=== PATIENT | male | born 1960 | race Caucasian/White ===

== ENCOUNTER 2018-09-20 19:37 | Inpatient (IN) ==
--- NOTE | 2018-09-20 20:30 | XR ---
EXAM DATE: 09/20/2018 8:16 PM EDT AGE/SEX: 57 years / Male INDICATIONS: Chest pain and shortness of breath. CLINICAL DATA: This is the patient's initial encounter. Patient reports that signs and symptoms have been present for 1 day and indicates a pain score of 7/10. MEDICAL/SURGICAL HISTORY: Chronic obstructive pulmonary disease. Hypertension. . Gastric band. COMPARISON: No prior exams available for comparison. FINDINGS: No significant focal pleural or parenchymal opacities. The cardiomediastinal contours are unremarkabl e. Osseous structures are intact. CONCLUSION: 1. Negative portable chest. Electronically signed by: Elio Carson MD 09/20/2018 8:28 PM EDT
[2018-09-20 21:23] LABS: Baso % (Auto) 0.7 % (0.0-2.0); Eos % (Auto) 1.1 % (0.0-4.0); Hematocrit 33.2 % (39.0-51.0); Hemoglobin 11.2 gm/dL (13.0-17.0); Lymph # (Auto) 0.8 th/mm3 (1.0-4.8); Lymph % (Auto) 27.3 % (9.0-44.0); Mean Corpuscular HGB Conc 33.7 % (32.0-36.0); Mean Corpuscular Hemoglobin 33.7 pg (27.0-34.0); Mean Platelet Volume 9.6 fL (7.0-11.0); Mono # (Auto) 0.2 th/mm3 (0.0-0.9); Mono % (Auto) 7.9 % (0.0-8.0); Neut # (Auto) 1.8 th/mm3 (1.8-7.7); Platelet Count 51 th/mm3 (150-450); Red Blood Count 3.32 mil/mm3 (4.50-5.90); Red Cell Distribution Width 15.8 % (11.6-17.2); White Blood Count 2.8 th/mm3 (4.0-11.0)
[2018-09-20 21:45] LABS: Alanine Aminotransferase 132 U/L (12-78); Albumin 3.3 g/dL (3.4-5.0); Anion Gap 15 meq/L (5-15); Aspartate Aminotransferase 355 U/L (15-37); Blood Urea Nitrogen 12 mg/dL (7-18); Calcium 8.4 mg/dL (8.5-10.1); Chloride 107 meq/L (98-107); Glomerular Filtration Rate 83 mL/min (>89); Glucose,Random 85 mg/dL (74-106); Potassium 3.2 meq/L (3.5-5.1); Sodium 144 meq/L (136-145)
[2018-09-20 21:49] LABS: Alkaline Phosphatase 247 U/L (45-117); Total Protein 7.5 g/dL (6.4-8.2); Troponin I 0.09 ng/mL (0.02-0.05)
--- NOTE | 2018-09-20 22:48 | ED ---
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 09/20/18 22:45 CONCLUSION: 1. No acute intracranial abnormality. 2. Cortical atrophy. 3. Right maxillary sinus disease. . Liver Ultrasound 09/21/18 00:00 CONCLUSION: 1. Pronounced hepatic steatosis. 2. Gallbladder abnormality which may be polyp or tumefactive sludge 3. Increasing splenomegaly and peritoneal and pleural fluid which were not present just yesterday. Lumbar Spine CT 09/21/18 00:00 CONCLUSION: 1. No acute bony abnormalities seen. 2. Moderate stenosis at the L4-L5 level caused by disc bulge and facet and ligamentum flavum hypertrophy. 3. Mild disc bulges at the L3-L4 and L5-S1 levels. Thoracic Spine CT 09/21/18 00:00 CONCLUSION: No acute abnormality. There are scattered minimal marginal osteophyte seen. Discharge Plan Discharge Disposition Patient Disposition: 30 Still Patient Discharge Condition Condition: Stable Discharge Order Discharge Orders: Discharge Order (Routine); Ordered 09/23/18 Ordered By: Escobar Garner Discharge Details Anticipated Discharge Date: 09/23/18 Diagnosis: Elevated troponin, Elevated liver enzymes, Alcohol abuse, Fracture of rib Physicians Team ED Provider: Bhupinder Mayfield ED Midlevel Provider: Ilir Falcon Primary Care Provider: UNKNOWN, Attending Provider: Escobar Garner Other Providers: Rupesh Ortiz Status ED Status: Left Department Discharge Information Discharge Date/Time: 09/21/18 04:01
[2018-09-20 23:27] LABS: Alcohol 229 mg/dL (0-5); Creatine Kinase 176 U/L (39-308)
[2018-09-20 23:31] LABS: Activated Partial Thrombo Time 26.4 sec (24.3-30.1); INR 1.3 Ratio; Prothrombin Time 12.7 sec (9.8-11.6)
[2018-09-20 23:43] LABS: Creatine Kinase MB 1.3 ng/mL (0.5-3.6)
[2018-09-21 00:07] LABS: Bacteria,Urine Rare /hpf; Bilirubin,Urine Small (Negative); Clarity,Urine Hazy (Clear); Color,Urine Amber (Yellw/Straw); Glucose,Urine (UA) Negative (Negative); Hyaline Casts,Urine 64 /lpf (0-3); Leukocyte Esterase,Urine Negative (Negative); Mucus,Urine Few /lpf (Occasional); Nitrite,Urine Negative (Negative); Specific Gravity,Urine 1.024 (1.002-1.035); Squamous Epithelial Cell,Urine 1 /hpf (0-5); Urobilinogen,Urine 4 or Greater mg/dL (Less than 2)
[2018-09-21 00:09] LABS: Ictotest,Urine Positive (Negative)
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
[2018-09-21] MEDS ORDERED: Sod Chloride 0.9% Inj 1,000 ML IV.SIG SCH (00:15)
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
[2018-09-21 00:22] LABS: Amphetamine Screen,Urine Neg (Neg); Barbiturate Screen,Urine Neg (Neg); Cannabinoid Screen,Urine Neg (Neg); Cocaine Screen,Urine Neg (Neg)
[2018-09-21] MEDS ORDERED: Haloperidol Inj 5 MG/ML Ampul IV.PUSH PRN (00:23)
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
[2018-09-21 00:41] LABS: Opiate Screen,Urine Neg (Neg)
[2018-09-21] MEDS ORDERED: Sod Chloride 0.9% Inj 1,000 ML IV.SIG ONE (01:30)
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
[2018-09-21 04:07] LABS: Troponin I 0.1 ng/mL (0.02-0.05)
[2018-09-21] MEDS: Sod Chloride 0.9% Inj 1,000 ML IV.CONT SCH ×4 (05:24→18:39)
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
[2018-09-21] MEDS: Aspirin 325 MG Tablet PO SCH (09:45)
[2018-09-21] MEDS: Lisinopril 10 MG Tablet PO SCH (09:46)
[2018-09-21] MEDS: Pantoprazole Sodium 20 MG DR Tablet PO SCH (09:46)
[2018-09-21] MEDS: Atenolol 50 MG Tablet PO SCH (09:46)
--- NOTE | 2018-09-21 11:14 | P.CONGI ---
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 same as a sharp pressure type pain that is intermittent. He denies any aggravating or alleviating factors. Patient denies difficulty swallowing or heartburn. States bowel movements are regular 3 times daily soft brown without any noted bleeding. Transaminitis Most likely due to chronic alcohol use. Total bilirubin 5.1 AST 355 ALT 132 alk phos 247 albumin 3.3. (09/21) liver ultrasound revealed the following:. 1. Pronounced hepatic steatosis. 2. Gallbladder abnormality which may be polyp or tumefactive sludge 3. Increasing splenomegaly and peritoneal and pleural fluid which were not present just yesterday. (09/20) CT abdomen and pelvis revealed the following. 1. Hepatosplenomegaly. There is hepatic steatosis present. 2. No acute abnormality is seen. 3. Suspected left renal cyst. 4. Lap band. Elevated troponin noted at 0.10. Plan -Diet as tolerated -Monitor labs/liver workup -Trend liver function tests -Continue IV fluid hydration -Avoid hepatotoxins -Alcohol cessation -PPI -Supportive care -Further recommendations to follow based on patient's status and findings This patient has been seen by myself and Dr. Ortiz and this note is written on his behalf - Attending Attestation Dr. Ortiz <Yolande Allan - Last Filed: 09/21/18 10:55> (1) Elevated liver enzymes Status: Acute Code(s): R74.8 - Abnormal levels of other serum enzymes (2) Alcohol abuse Status: Acute Code(s): F10.10 - Alcohol abuse, uncomplicated - Plan Patient seen and examined Agree with above history and physical Continue with current supportive care Monitor labs Patient is seen for elevated liver function tests with no history of alcoholism with findings suggestive of cirrhosis with noted hepatosplenomegaly on the CT the patient also has pancytopenia low albumin mildly elevated PT/INR again all suggestive of cirrhosis at this point in addition to acute alcoholic hepatitis regardless workup is currently in progress and we will await lab tests and monitor but the patient will need to abstain from alcohol and any other potentially hepatotoxic drug <Rupesh Ortiz E - Last Filed: 09/21/18 20:14>
[2018-09-21 11:53] LABS: Albumin 3.1 g/dL (3.4-5.0); Anion Gap 9 meq/L (5-15); Aspartate Aminotransferase 299 U/L (15-37); Blood Urea Nitrogen 9 mg/dL (7-18); Calcium 7.9 mg/dL (8.5-10.1); Carbon Dioxide 25.9 meq/L (21.0-32.0); Chloride 107 meq/L (98-107); Glomerular Filtration Rate Greater Than 89 mL/min (>89); Glucose,Random 75 mg/dL (74-106); Potassium 3.5 meq/L (3.5-5.1); Sodium 142 meq/L (136-145)
[2018-09-21 11:55] LABS: Alanine Aminotransferase 121 U/L (12-78)
[2018-09-21 11:57] LABS: Alkaline Phosphatase 221 U/L (45-117); Total Protein 7.1 g/dL (6.4-8.2); Troponin I 0.09 ng/mL (0.02-0.05)
[2018-09-21 12:29] LABS: % Iron Saturation 48.2 % (20-50)
[2018-09-21 13:09] LABS: Hepatitis A IgM Antibody Nonreactive (Nonreactive); Hepatitits B Surface Antigen Nonreactive (Nonreactive)
[2018-09-21] MEDS: LORazepam 1 MG Tablet PO PRN (18:38)
[2018-09-22] MEDS: Sod Chloride 0.9% Inj 1,000 ML IV.CONT SCH ×5 (01:28→23:41)
[2018-09-22] MEDS: Aspirin 325 MG Tablet PO SCH (08:16)
[2018-09-22] MEDS: Pantoprazole Sodium 20 MG DR Tablet PO SCH (08:17)
[2018-09-22] MEDS: Lisinopril 10 MG Tablet PO SCH (08:19)
[2018-09-22] MEDS: Atenolol 50 MG Tablet PO SCH (08:51)
[2018-09-22 09:40] LABS: Baso % (Auto) 0.3 % (0.0-2.0); Eos % (Auto) 1.3 % (0.0-4.0); Hematocrit 30.8 % (39.0-51.0); Hemoglobin 10.7 gm/dL (13.0-17.0); Lymph # (Auto) 0.6 th/mm3 (1.0-4.8); Lymph % (Auto) 20.5 % (9.0-44.0); Mean Corpuscular HGB Conc 34.8 % (32.0-36.0); Mean Corpuscular Hemoglobin 34.5 pg (27.0-34.0); Mean Corpuscular Volume 99.3 fL (80.0-100.0); Mean Platelet Volume 9.8 fL (7.0-11.0); Mono # (Auto) 0.3 th/mm3 (0.0-0.9); Mono % (Auto) 11.1 % (0.0-8.0); Neut # (Auto) 2.1 th/mm3 (1.8-7.7); Neut % (Auto) 66.8 % (16.0-70.0); Platelet Count 56 th/mm3 (150-450); Red Cell Distribution Width 16.5 % (11.6-17.2); White Blood Count 3.1 th/mm3 (4.0-11.0)
[2018-09-22] MEDS ORDERED: Morphine Sulfate Inj 2 MG/ML Vial IV.PUSH PRN (10:09)
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
[2018-09-22] MEDS: Morphine Inj 4 MG/ML Vial IV.PUSH PRN ×3 (13:19→21:55)
[2018-09-22 14:46] LABS: Smooth Muscle Total Auto Abs Negative (Negative)
--- NOTE | 2018-09-22 16:03 | P.PNGI ---
Subjective Interval history: Patient awake and alert sitting up in bed reports mild nausea relieved by Zofran States tolerating meals well Denies abdominal pain <JerrellYolande - Last Filed: 09/22/18 15:58> Physical Exam Vital signs: Vital Signs 09/21/18 18:00 09/21/18 20:00 09/22/18 00:00 Temperature 99.2 F 99.4 F 98.9 F Pulse Rate 85 84 80 Respiratory Rate 20 18 18 Blood Pressure 166/88 H 168/100 H 131/86 Pulse Oximetry 99 98 97 09/22/18 04:00 09/22/18 08:00 09/22/18 12:00 Temperature 99.2 F 98.8 F 98.9 F Pulse Rate 107 H 98 H 97 H Respiratory Rate 18 20 18 Blood Pressure 150/94 H 158/80 H 136/69 Pulse Oximetry 90 L 98 93 L Intake & Output 09/21/18 09/22/18 09/22/18 18:59 06:59 18:59 Intake Total 7 / 2087 1500 / 1500 500 / 500 Output Total 800 / 800 Balance 2086 / 2086 700 / 700 500 / 500 Weight 92.8 kg 92.5 kg Intake: IV 208 / 2087 1500 / 1500 500 / 500 NS Inj 1,000 ML @ 100 mls/hr IV 1087 / 1087 1500 / 1500 500 / 500 .CONT .Q10H MIGUEL Rx#:[id number] NS Inj 1,000 ML @ Wide Open IV. 1000 / 1000 SIG BOLUS ONE Rx#:[id number] Output: Urine 800 / 800 Other: Date of Last Bowel Movement 09/20/18 - Constitutional no acute distress - Routine HEENT Exam Head: Present: normocephalic - Routine Respiratory Exam Present: CTA bilaterally. Absent: accessory muscle use - Routine Abdominal Exam Present: soft, normoactive bowel sounds. Absent: tenderness, guarding, firm - Routine Extremities Exam Present: full ROM. Absent: edema - Routine Skin Exam Present: dry, warm, jaundice - Routine Neurological Exam Present: alert, oriented X3 - Routine Psychiatric Exam Present: normal affect, cooperative <JerrellYolande - Last Filed: 09/22/18 15:58> Vital signs: Vital Signs 09/22/18 00:00 09/22/18 04:00 10/24/18 08:00 Temperature 98.9 F 99.2 F 98.8 F Pulse Rate 80 107 H 98 H Respiratory Rate 18 18 20 Blood Pressure 131/86 150/94 H 158/80 H Pulse Oximetry 97 90 L 98 09/22/18 12:00 09/22/18 16:00 09/22/18 20:14 Temperature 98.9 F 99.6 F Pulse Rate 92 H 99 H Respiratory Rate 18 18 Blood Pressure 136/69 161/84 H Pulse Oximetry 93 L 93 L 94 L Intake & Output 09/22/18 09/22/18 09/23/18 06:59 18:59 06:59 Intake Total 1500 / 1500 500 / 500 Output Total 800 / 800 Balance 700 / 700 500 / 500 Weight 92.5 kg Intake: IV 1500 / 1500 500 / 500 NS Inj 1,000 ML @ 100 mls/hr IV 1500 / 1500 500 / 500 .CONT .Q10H MIGUEL Rx#:[id number] Output: Urine 800 / 800 Other: # Voids 6 Date of Last Bowel Movement 09/20/18 # Bowel Movements 1 <Rupesh Ortiz E - Last Filed: 09/22/18 20:48> Results - Labs CBC & Chem 7: 09/22/18 08:44 09/21/18 11:06 Laboratory Results - last 24 hr 09/21/18 09/22/18 11:39 08:44 WBC 3.1 L RBC 3.10 L Hgb 10.7 L Hct 30.8 L MCV 99.3 MCH 34.5 H MCHC 34.8 RDW 16.5 Plt Count 56 L MPV 9.8 Prelim Diff (Auto) Slide review pending Neut % (Auto) 66.8 Lymph % (Auto) 20.5 [place] % (Auto) 11.1 H Eos % (Auto) 1.3 Baso % (Auto) 0.3 Neut # (Auto) 2.1 Lymph # (Auto) 0.6 L [place] # (Auto) 0.3 Eos # (Auto) 0.0 Baso # (Auto) 0.0 WBC Differential . Diff Scan Auto diff confirmed Differential Comment . Anti-Smooth Muscle Ab Negative Microbiology 09/20/18 23:30 Clean Catch Urine Urine Culture - Final 50-100,000 cfu/mL mixed gram positive jameel (probable contaminants) <Yolande Allan - Last Filed: 09/22/18 15:58> - Labs CBC & Chem 7: 09/22/18 08:44 09/21/18 11:06 Laboratory Results - last 24 hr 09/21/18 09/22/18 11:39 08:44 WBC 3.1 L RBC 3.10 L Hgb 10.7 L Hct 30.8 L MCV 99.3 MCH 34.5 H MCHC 34.8 RDW 16.5 Plt Count 56 L MPV 9.8 Prelim Diff (Auto) Slide review pending Neut % (Auto) 66.8 Lymph % (Auto) 20.5 [place] % (Auto) 11.1 H Eos % (Auto) 1.3 Baso % (Auto) 0.3 Neut # (Auto) 2.1 Lymph # (Auto) 0.6 L [place] # (Auto) 0.3 Eos # (Auto) 0.0 Baso # (Auto) 0.0 WBC Differential . Diff Scan Auto diff confirmed Differential Comment . Anti-Smooth Muscle Ab Negative Microbiology 09/20/18 23:30 Clean Catch Urine Urine Culture - Final 50-100,000 cfu/mL mixed gram positive jameel (probable contaminants) <Rupesh Ortiz - Last Filed: 09/22/18 20:48> Assessment and Plan (1) Elevated liver enzymes Status: Acute Code(s): R74.8 - Abnormal levels of other serum enzymes (2) Alcohol abuse Status: Acute Code(s): F10.10 - Alcohol abuse, uncomplicated - Plan 09/22/2018 Transaminitis 09/21/2018 total bilirubin 5.7 AST 299 ALT 121 alk phos 221 troponin noted 0.09 AFP tumor marker 2.5 serum immunology pending, hepatitis panel nonreactive Plan -Diet as tolerated/cardiac -Monitor labs liver workup -Continue IV fluid hydration -Avoid hepatotoxins -Alcohol cessation -Continue PPI -Supportive care -Further recommendations to follow based on patient status and findings This patient has been seen by myself and Dr. Ortiz and this note is written on his behalf - Attending Attestation Dr. Ortiz <Yolande Allan - Last Filed: 09/22/18 15:58> (1) Elevated liver enzymes Status: Acute Code(s): R74.8 - Abnormal levels of other serum enzymes (2) Alcohol abuse Status: Acute Code(s): F10.10 - Alcohol abuse, uncomplicated - Plan Patient seen and examined Agree with above Continue with current supportive care Monitor labs Liver workup in progress <Rupesh Ortiz - Last Filed: 09/22/18 20:48>
[2018-09-23] MEDS ORDERED: Ibuprofen 600 MG Tablet PO ONE (00:13)
[2018-09-23] MEDS: LORazepam 1 MG Tablet PO PRN (00:21)
--- NOTE | 2018-09-23 01:13 | ECG ---
Date Performed: 09/21/2018 Time Performed: 10:16:59 PTAGE: 57 years EKG: Sinus rhythm NORMAL ECG Since the PREVIOUS TRACING , no significant change noted DOCTOR: Ismael Murphy Interpretating Date/Time 09/23/2018 01:12:07
--- NOTE | 2018-09-23 01:44 | ECG ---
Date Performed: 09/20/2018 Time Performed: 20:00:58 PTAGE: 57 years EKG: Sinus rhythm NONSPECIFIC T-WAVE ABNORMALITY BORDERLINE ECG INTERPRETATION BASED ON A DEFAULT AGE OF 39 YEARS NO PREVIOUS TRACING DOCTOR: Ismael Murphy Interpretating Date/Time 09/23/2018 01:42:43
[2018-09-23] MEDS: Morphine Inj 4 MG/ML Vial IV.PUSH PRN (02:15)
[2018-09-23] MEDS: Sod Chloride 0.9% Inj 1,000 ML IV.CONT SCH (03:13)
[2018-09-23 05:35] VITALS: RESP 18
[2018-09-23 08:15] LABS: Baso % (Auto) 0.4 % (0.0-2.0); Eos # (Auto) 0.1 th/mm3 (0.0-0.4); Eos % (Auto) 1.3 % (0.0-4.0); Hemoglobin 11.3 gm/dL (13.0-17.0); Lymph # (Auto) 0.9 th/mm3 (1.0-4.8); Lymph % (Auto) 18.4 % (9.0-44.0); Mean Corpuscular HGB Conc 34.2 % (32.0-36.0); Mean Corpuscular Hemoglobin 34.7 pg (27.0-34.0); Mean Corpuscular Volume 101.4 fL (80.0-100.0); Mean Platelet Volume 9.8 fL (7.0-11.0); Mono # (Auto) 0.5 th/mm3 (0.0-0.9); Mono % (Auto) 9.5 % (0.0-8.0); Neut # (Auto) 3.4 th/mm3 (1.8-7.7); Neut % (Auto) 70.4 % (16.0-70.0); Platelet Count 60 th/mm3 (150-450); Red Blood Count 3.26 mil/mm3 (4.50-5.90); Red Cell Distribution Width 16.9 % (11.6-17.2); White Blood Count 4.8 th/mm3 (4.0-11.0)
[2018-09-23 08:41] LABS: Alanine Aminotransferase 119 U/L (12-78); Albumin 2.9 g/dL (3.4-5.0); Alkaline Phosphatase 204 U/L (45-117); Anion Gap 10 meq/L (5-15); Aspartate Aminotransferase 282 U/L (15-37); Blood Urea Nitrogen 5 mg/dL (7-18); Calcium 7.4 mg/dL (8.5-10.1); Carbon Dioxide 28.2 meq/L (21.0-32.0); Chloride 99 meq/L (98-107); Creatine Kinase 119 U/L (39-308); Glomerular Filtration Rate Greater Than 89 mL/min (>89); Glucose,Random 94 mg/dL (74-106); Potassium 3.2 meq/L (3.5-5.1); Sodium 137 meq/L (136-145); Total Protein 6.9 g/dL (6.4-8.2); Troponin I 0.19 ng/mL (0.02-0.05)
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
[2018-09-23] MEDS: Atenolol 50 MG Tablet PO SCH (10:00)
[2018-09-23] MEDS: Pantoprazole Sodium 20 MG DR Tablet PO SCH (10:01)
[2018-09-23] MEDS: Lisinopril 10 MG Tablet PO SCH (10:01)
[2018-09-23] MEDS: Aspirin 325 MG Tablet PO SCH (10:02)
[2018-09-23 10:28] LABS: Platelet Morphology Normal (Normal)
[2018-09-23 17:52] LABS: Ceruloplasmin 23 mg/dL (18-36); Hepatitis Be Antigen NONREACTIVE
[2018-09-23 17:58] VITALS: BP 160/89; PULSE 92; TEMP 98.3; O2SAT 95
[2018-09-24 03:49] LABS: DS DNA Ab (Crithidia) NEGATIVE (NEGATIVE)
== END 2018-09-23 10:50 | disposition home or self-care (01) ==
LOC: NEDAMB 19:37 → NEDA 19:37 → NEPHCDU 09-21 03:51 → N04 09-21 18:12
PROVIDERS: ADMIT Hospitalist; ATTEND Hospitalist